=== PATIENT | female | born 1975 | race Caucasian/White ===

== ENCOUNTER 2017-12-20 22:49 | Emergency (ER) | payer OTHER ==
[2017-12-21] LABS: Absolute Lymphocytes (CBC) 2.9 K/uL (0.7-4.9); Absolute Monocytes 0.7 K/uL (0.1-1.3); Absolute Neutrophil 5.4 K/uL (1.8-8.0); Basophils % 0.9 % (0-1.3); Eosinophils % 3.5 % (0-4.4); Lymphocytes % 30.8 % (15.3-44.8); MCH 33.7 pg (27.0-35.0); MCV 95.2 fL (80-100); MPV 7.6 fL (7.6-11.3); Monocytes % 7.3 % (3.3-12.3)
[2017-12-21 00:03] LABS: Protime INR 0.87
[2017-12-21] MEDS ORDERED: NA CHLORIDE 0.9% 1,000 ML ONE (00:09)
[2017-12-21 00:17] LABS: Barbiturates NEGATIVE (NEGATIVE); Benzodiazepines NEGATIVE (NEGATIVE); Cocaine NEGATIVE (NEGATIVE); METHAMPHETAM NEGATIVE (NEGATIVE); Methadone NEGATIVE (NEGATIVE); Opiates NEGATIVE (NEGATIVE); Phencyclidine NEGATIVE (NEGATIVE); THC Cannibis POSITIVE (NEGATIVE)
[2017-12-21 00:20] LABS: ALT/SGPT 23 U/L (12-78); AST/SGOT 19 U/L (15-37); Albumin 3.5 g/dL (3.4-5.0); Alkaline Phosphatase 103 U/L (45-117); BUN Blood Urea Nitrogen 9 mg/dL (7-18); Bicarbonate 25 mmol/L (21-32); Bilirubin Direct < 0.1 mg/dL (0-0.2); Bilirubin Total 0.3 mg/dL (0.2-1.0); Glucose Level 102 mg/dL (74-106); Potassium 3.4 mmol/L (3.5-5.1); Protein, Total 7.3 g/dL (6.4-8.2); Sodium Level 140 mmol/L (136-145)
[2017-12-21 00:55] LABS: Urine Blood 1+ (NEG); Urine Glucose NEGATIVE (NEG); Urine Protein 1+ (NEG); Urine Specific Gravity <1.005 (1.005-1.030); Urine pH 5.5 (5.0-7.0)
[2017-12-21 00:56] LABS: Lithium 1.4 mmol/L (0.6-1.2); Salicylates Level 6.7 mg/dL (2.8-20)
--- NOTE | 2017-12-21 08:39 | EKG ---
Test Date: 2017-12-20 Test Time: 22:51:30 Technical Training Manager: YULIA MEASUREMENT RESULTS: Intervals: Rate: 80 LA: 128 QRSD: 94 QT: 398 QTc: 459 [place]: P: 54 LA: 128 QRS: 64 T: 39 INTERPRETIVE STATEMENTS: Normal sinus rhythm Nonspecific T wave abnormality Abnormal ECG No previous ECG available for comparison Electronically Signed On 12-21-17 08:38:43 CDT by Willie Hill
--- NOTE | 2017-12-21 09:44 | EDPHYS ---
Physician Documentation [facility] Name: Faby Boston Age: 42 yrs Sex: Female : 1975 Arrival Date: 12/20/2017 Time: 22:49 Bed 3 Private MD: ED Physician Samuel Arevalo HPI: 12/21 02:38 This 42 yrs old Female presents to ER via EMS with complaints of Suicidal gs Ideation, INGESTION. 02:38 The patient presents to the emergency department with suicide ideation. The patient gs presents to the emergency department with suicide ideation, and the patient has a plan, to overdose with medications. Onset: The symptoms/episode began/occurred acutely, yesterday. Associated signs and symptoms: Pertinent negatives: abdominal pain, hallucinations, paranoia. Severity of symptoms: At their worst the symptoms were moderate in the emergency department the symptoms are unchanged. The patient has experienced similar episodes in the past, a few times. says took 10 lithium pills. 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 - Social history:: Smoking status: Patient uses tobacco products, unknown amount Patient uses alcohol. - Ebola Screening: : Patient negative for fever greater than or equal to 101.5 degrees Fahrenheit, and additional compatible Ebola Virus Disease symptoms Patient denies exposure to infectious person Patient denies travel to an Ebola-affected area in the 21 days before illness onset No symptoms or risks identified at this time. ROS: 12/21 02:38 All other systems are negative. gs Exam: 02:38 Head/Face: Normocephalic, atraumatic. Eyes: Pupils equal round and reactive to light, gs extra-ocular motions intact. Lids and lashes normal. Conjunctiva and sclera are non-icteric and not injected. Cornea within normal limits. Periorbital areas with no swelling, redness, or edema. ENT: Nares patent. No nasal discharge, no septal abnormalities noted. Tympanic membranes are normal and external auditory canals are clear. Oropharynx with no redness, swelling, or masses, exudates, or evidence of obstruction, uvula midline. Mucous membranes moist. Neck: Trachea midline, no thyromegaly or masses palpated, and no cervical lymphadenopathy. Supple, full range of motion without nuchal rigidity, or vertebral point tenderness. No Meningismus. Chest/axilla: Normal chest wall appearance and motion. Nontender with no deformity. No lesions are appreciated. Cardiovascular: Regular rate and rhythm with a normal S1 and S2. No gallops, murmurs, or rubs. Normal PMI, no JVD. No pulse deficits. Respiratory: Lungs have equal breath sounds bilaterally, clear to auscultation and percussion. No rales, rhonchi or wheezes noted. No increased work of breathing, no retractions or nasal flaring. Abdomen/GI: Soft, non-tender, with normal bowel sounds. No distension or tympany. No guarding or rebound. No evidence of tenderness throughout. Back: No spinal tenderness. No costovertebral tenderness. Full range of motion. Skin: Warm, dry with normal turgor. Normal color with no rashes, no lesions, and no evidence of cellulitis. MS/ Extremity: Pulses equal, no cyanosis. Neurovascular intact. Full, normal range of motion. 02:38 Constitutional: The patient appears alert, awake. 02:38 ECG was reviewed by the Attending Physician. 02:38 Psych: Behavior/mood is depressed, Oriented to person, place, time, Patient having thoughts of suicide. Vital Signs: 12/20 22:52 BP 103 / 66; Pulse 81; Resp 15; Temp 98.7; Pulse Ox 98% ; Weight 61.23 kg; Height 5 ft. cc3 1 in. (154.94 cm); 23:53 BP 95 / 59; Pulse 77; Resp 12 S; Pulse Ox 97% on R/A; bb 12/21 00:00 BP 97 / 57; Pulse 80; Resp 19; Pulse Ox 97% ; bp 00:57 BP 96 / 62; Pulse 73; Resp 15; Pulse Ox 99% ; bp 02:00 BP 97 / 66; Pulse 83; Resp 21; Pulse Ox 97% ; bp 03:00 BP 112 / 78; Pulse 79; Resp 18; Pulse Ox 95% ; bp 03:56 BP 124 / 87; Pulse 74; Resp 15; Pulse Ox 100% ; bp 06:15 BP 106 / 72; Pulse 66; Resp 16 S; Pulse Ox 100% on R/A; bp 07:33 BP 110 / 73; Pulse 71 MON; Resp 14; Pulse Ox 99% ; sv 08:33 BP 118 / 70; Pulse 68; Resp 18; Pulse Ox 97% ; sv 12/20 22:52 Body Mass Index 25.51 (61.23 kg, 154.94 cm) cc3 07:33 Sinus Rhythm sv MDM: 12/20 23:55 Patient medically screened. 12/21 02:38 Differential diagnosis: drug withdrawal. acute psychotic break, depression. Data reviewed: vital signs, nurses notes. Response to treatment: There is no appreciated change of the patient's symptoms at this time, and as a result, I will transfer. 09:42 ED course: Inherited patient from Dr. Arevalo pending transfer, no NAIDA obtained, patient rn now sober and denies suicidal ideation or intent to nurse and myself. Has roommate here with her, she is going home regardless of what we say or do. Is asymptomatic, ambulatory to bathroom. Kismet level a little elevated but an acute on chronic ingestion of even a few pills would result in a high level, is still below 2, and patient asymptomatic, lithium levels have poor correlation to toxicity, especially with regular dosing. Sober and denies suicidal ideation, unable to detain here at this point. Patient eloped. . 12/20 23:02 Order name: Acetaminophen; Complete Time: : [facility] 12/20 23:02 Order name: Basic Metabolic Panel; Complete Time: : [facility] 12/20 23:02 Order name: CBC with Diff; Complete Time: [facility] 12/20 23:02 Order name: ETOH Level; Complete Time: : [facility] 12/20 23:02 Order name: Hepatic Function; Complete Time: : [facility] 12/20 23:02 Order name: PT-INR; Complete Time: : [facility] 12/20 23:02 Order name: Ptt, Activated; Complete Time: : [facility] 12/20 23:02 Order name: Salicylate; Complete Time: : [facility] 12/20 23:02 Order name: Urine Drug Screen; Complete Time: : [facility] 12/20 23:02 Order name: Kismet; Complete Time: [facility] 12/20 23:37 Order name: Urine Dipstick--Ancillary (enter results); Complete Time: 01:46 ia 12/20 23:37 Order name: Urine --Ancillary (enter results); Complete Time: 01:46 ia 12/21 07:09 Order name: Kismet; Complete Time: 08:50 12/21 07:09 Order name: ETOH Level; Complete Time: 08:50 12/20 23:02 Order name: Urine Test (obtain specimen); Complete Time: 23:59 [facility] 12/20 23:02 Order name: EKG; Complete Time: 23:03 [facility] 12/20 23:02 Order name: EKG - Nurse/Tech; Complete Time: 23:59 [facility] 12/20 23:02 Order name: IV Saline Lock; Complete Time: 23:59 [facility] 12/20 23:02 Order name: Labs collected and sent; Complete Time: 23:59 3 12/20 23:02 Order name: Urine Dipstick-Ancillary (obtain specimen); Complete Time: :59 [facility] 12/21 07:23 Order name: Diet Finger Food; Complete Time: 07:23 ss EC:38 Rate is 80 beats/min. Rhythm is regular. NV interval is normal. QRS interval is normal. gs T waves are Flattened. No ST changes noted. Clinical impression: NSR w/ Non-specific ST/T Changes. Interpreted by me. Administered Medications: 00:05 Drug: NS 0.9% 1000 ml Route: IV; Rate: 1 bolus; Site: right forearm; bp 01:24 Follow up: IV Status: Completed infusion; IV Intake: 1000ml bp Disposition: 12/21/17 09:42 Patient left the facility after being seen by provider. - Patient left due to other. Signatures: Dispatcher [employer] Tammi Christianson RN RN sv Nieto, Roman, MD MD rn Starr, Gregory, MD MD gs Peltier, Brian, RN RN bp Cordel, Charlene cc3
--- NOTE | 2017-12-21 09:44 | ER ---
Nurse's Notes [facility] Name: Faby Boston Age: 42 yrs Sex: Female : 1975 Arrival Date: 12/20/2017 Time: 22:49 Bed 3 Private MD: Diagnosis: Presentation: 12/20 22:50 Presenting complaint: EMS states: LITHIUM OVERDOSE, SUICIDAL IDEATION. Transition of cc3 care: patient was not received from another setting of care. Onset of symptoms is unknown. Risk Assessment: Do you want to hurt yourself or someone else? Patient reports desire/thoughts of hurting themselves or someone else. Provider notified. Initial Sepsis Screen: Does the patient meet any 2 criteria? No. Patient's initial sepsis screen is negative. Does the patient have a suspected source of infection? No. Patient's initial sepsis screen is negative. Care prior to arrival: None. 22:50 Method Of Arrival: EMS: [facility] cc3 22:50 Acuity: THANIA 2 cc3 Triage Assessment: 22:52 General: Appears in no apparent distress. comfortable, Behavior is cooperative, cc3 inappropriate for age, restless, Smells of alcohol. Pain: Denies pain. EENT: No deficits noted. Neuro: Level of Consciousness is awake, alert, obeys commands, Oriented to person, place, time, situation, Appropriate for age. Cardiovascular: No deficits noted. Respiratory: Airway is patent Respiratory effort is even, unlabored, Respiratory pattern is regular, symmetrical. GI: No signs and/or symptoms were reported involving the gastrointestinal system. : No signs and/or symptoms were reported regarding the genitourinary system. Derm: No deficits noted. Musculoskeletal: Circulation, motion, and sensation intact. Range of motion: intact in all extremities. 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 - Social history:: Smoking status: Patient uses tobacco products, unknown amount Patient uses alcohol. - Ebola Screening: : Patient negative for fever greater than or equal to 101.5 degrees Fahrenheit, and additional compatible Ebola Virus Disease symptoms Patient denies exposure to infectious person Patient denies travel to an Ebola-affected area in the 21 days before illness onset No symptoms or risks identified at this time. Screenin:59 Abuse screen: Denies threats or abuse. Denies injuries from another. Nutritional cc3 screening: No deficits noted. Tuberculosis screening: No symptoms or risk factors identified. Fall Risk None identified. Assessment: 22:59 General: Appears in no apparent distress. comfortable, Behavior is cooperative. Pain: cc3 Denies pain. Neuro: Level of Consciousness is awake, alert, obeys commands, Oriented to Appropriate for age. Cardiovascular: No deficits noted. Respiratory: Airway is patent Respiratory effort is even, unlabored, Respiratory pattern is regular, symmetrical. GI: No signs and/or symptoms were reported involving the gastrointestinal system. : No signs and/or symptoms were reported regarding the genitourinary system. EENT: No deficits noted. Derm: No deficits noted. Musculoskeletal: Circulation, motion, and sensation intact. Range of motion: intact in all extremities. 23:52 Reassessment: No changes from previously documented assessment. Patient is alert, bb oriented x 3, equal unlabored respirations, skin warm/dry/pink. 12/21 02:00 Reassessment: PT SLEEPING, ALL CURRENT STUDIES COMPLETED. PENDING SOBRIETY FOR MED bp CLEARANCE. 03:56 Reassessment: PT RESTING QUIETLY. VS STABLE, PSYCH EVAL PENDING. bp 07:15 Reassessment: Pt reports that she took about 7-10 pills of [place] yesterday and drank sv "some tall boys" of beer yesterday with the intention of going to sleep for about 2 days. Pt denies attempting suicide in the past and denies it at this time. Informed pt that I am redrawing an alcohol and lithium level. Informed her that the alcohol level will need to be below 100 in order for [facility] to come and evaluate her. General: Appears in no apparent distress. comfortable, Behavior is calm, cooperative, pt laughing and joking with friend that is in the room.. Pain: Denies pain. Neuro: Level of Consciousness is awake, alert, obeys commands, Oriented to person, place, time, situation, Moves all extremities. Full function Speech is normal. Respiratory: Respiratory effort is even, unlabored, Respiratory pattern is regular, symmetrical. Derm: Skin is pink, warm \\T\\ dry. 08:30 Reassessment: Patient appears in no apparent distress at this time. No changes from previously documented assessment. Patient and/or family updated on plan of care and expected duration. Pain level reassessed. Patient is alert, oriented x 3, equal unlabored respirations, skin warm/dry/pink. 09:39 Reassessment: Pt stated that she has to go to work so she can be able to go to her psychiatrist to get direct admitted to a facility in [place]. Pt states that she is not suicidal at this time and she never was. NAIDA was not obtained from presentation to the ER. Informed Dr Joshi. Psych: 12/20 22:55 Subjective: Patient's mood is INAPPROPRIATE Delusions are denied, Hallucinations are cc3 denied Having thoughts of suicide. INTERMITTENT SUICIDAL IDEATION. Objective: Patient is cooperative, Speech is slurred, Affect is inappropriate. Interventions: Removed personal items and placed in bag. Patient placed in hospital gown. Searched person for dangerous items. Belonging list filled out. Suicide Risk Assessment: Sad Person Scale: Sex of patient: Female: Score 0 points. Age of patient: Score 0 point if patient falls outside of specified age parameters. Depression: Score 0 point if signs of depression are not present. Previous Attempt: Score 1 point if patient has previously attempted suicide. Substance Abuse: Score 1 point if patient abuses alcohol or drugs. Rational Thinking: Score 0 point if patient has rational thinking. Social Support: Score 0 if social support is present/available. Organized Plan: Score 0 if patient did not have an organized plan in place. Relationship: Score 1 point if patient is , , , or for a single male Chronic Sickness: Score 0 point if patient does not have a chronic illness, debilitating, or severe disorder. TOTAL POINTS: If total points are 3-4, proposed clinical action is close follow-up/consider hospitalization. Safety Checks: Personal items have been removed. Door is open. No visitors are present at this time. Patient uses UNDISCLOSED AMOUNT OF ETOH, STRONG AROMA. Commitment: BROUGHT BY EMS. Vital Signs: 22:52 BP 103 / 66; Pulse 81; Resp 15; Temp 98.7; Pulse Ox 98% ; Weight 61.23 kg; Height 5 ft. cc3 1 in. (154.94 cm); 23:53 BP 95 / 59; Pulse 77; Resp 12 S; Pulse Ox 97% on R/A; bb 12/21 00:00 BP 97 / 57; Pulse 80; Resp 19; Pulse Ox 97% ; bp 00:57 BP 96 / 62; Pulse 73; Resp 15; Pulse Ox 99% ; bp 02:00 BP 97 / 66; Pulse 83; Resp 21; Pulse Ox 97% ; bp 03:00 BP 112 / 78; Pulse 79; Resp 18; Pulse Ox 95% ; bp 03:56 BP 124 / 87; Pulse 74; Resp 15; Pulse Ox 100% ; bp 06:15 BP 106 / 72; Pulse 66; Resp 16 S; Pulse Ox 100% on R/A; bp 07:33 BP 110 / 73; Pulse 71 MON; Resp 14; Pulse Ox 99% ; sv 08:33 BP 118 / 70; Pulse 68; Resp 18; Pulse Ox 97% ; sv 12/20 22:52 Body Mass Index 25.51 (61.23 kg, 154.94 cm) cc3 07:33 Sinus Rhythm sv ED Course: 12/20 22:49 Patient arrived in ED. cc3 22:51 Triage completed. cc3 22:52 Arm band placed on. cc3 22:59 Patient has correct armband on for positive identification. Placed in gown. Bed in low cc3 position. Call light in reach. Side rails up X2. SITTER AT B/S. 23:00 Safety Checks: Personal items have been removed. The door is open or patient has been cc3 placed in a hallway bed/chair. There are no family/friend visitors at this time Sitter present at this time. 23:00 Inserted saline lock: 20 gauge in right forearm, using aseptic technique. Blood bp collected. 23:16 Safety Checks: Personal items have been removed. The door is open or patient has been kk5 placed in a hallway bed/chair. There are no family/friend visitors at this time Sitter present at this time. 23:29 Safety Checks: Personal items have been removed. The door is open or patient has been kk5 placed in a hallway bed/chair. There are no family/friend visitors at this time Sitter present at this time. 23:40 Samuel Arevalo MD is Attending Physician. 23:48 Safety Checks: Personal items have been removed. The door is open or patient has been kk5 placed in a hallway bed/chair. There are no family/friend visitors at this time Sitter present at this time. 23:58 Safety Checks: Personal items have been removed. The door is open or patient has been kk5 placed in a hallway bed/chair. There are no family/friend visitors at this time Sitter present at this time. 23:58 Jairo Salomon, RUSS is Primary Nurse. bp 12/21 00:15 Safety Checks: Personal items have been removed. The door is open or patient has been kk5 placed in a hallway bed/chair. There are no family/friend visitors at this time Sitter present at this time. 00:32 Safety Checks: Personal items have been removed. The door is open or patient has been kk5 placed in a hallway bed/chair. There are no family/friend visitors at this time Sitter present at this time. 00:48 Safety Checks: Personal items have been removed. The door is open or patient has been kk5 placed in a hallway bed/chair. There are no family/friend visitors at this time Sitter present at this time. 01:01 Safety Checks: Personal items have been removed. The door is open or patient has been kk5 placed in a hallway bed/chair. There are no family/friend visitors at this time Sitter present at this time. 01:15 Safety Checks: Personal items have been removed. The door is open or patient has been kk5 placed in a hallway bed/chair. There are no family/friend visitors at this time Sitter present at this time. 01:31 Safety Checks: Personal items have been removed. The door is open or patient has been kk5 placed in a hallway bed/chair. There are no family/friend visitors at this time Sitter present at this time. 01:45 Safety Checks: Personal items have been removed. The door is open or patient has been kk5 placed in a hallway bed/chair. There are no family/friend visitors at this time Sitter present at this time. 02:00 Safety Checks: Personal items have been removed. The door is open or patient has been kk5 placed in a hallway bed/chair. There are no family/friend visitors at this time Sitter present at this time. 02:16 Safety Checks: Personal items have been removed. The door is open or patient has been kk5 placed in a hallway bed/chair. There are no family/friend visitors at this time Sitter present at this time. 02:30 Safety Checks: Personal items have been removed. The door is open or patient has been kk5 placed in a hallway bed/chair. There are no family/friend visitors at this time Sitter present at this time. 02:46 Safety Checks: Personal items have been removed. The door is open or patient has been kk5 placed in a hallway bed/chair. There are no family/friend visitors at this time Sitter present at this time. 03:00 Safety Checks: Personal items have been removed. The door is open or patient has been kk5 placed in a hallway bed/chair. There are no family/friend visitors at this time Sitter present at this time. 03:17 Safety Checks: Personal items have been removed. The door is open or patient has been kk5 placed in a hallway bed/chair. There are no family/friend visitors at this time Sitter present at this time. 03:33 Safety Checks: Personal items have been removed. The door is open or patient has been kk5 placed in a hallway bed/chair. There are no family/friend visitors at this time Sitter present at this time. 03:50 Safety Checks: Personal items have been removed. The door is open or patient has been kk5 placed in a hallway bed/chair. There are no family/friend visitors at this time Sitter present at this time. 04:10 Safety Checks: Personal items have been removed. The door is open or patient has been kk5 placed in a hallway bed/chair. There are no family/friend visitors at this time Sitter present at this time. 04:31 Safety Checks: Personal items have been removed. The door is open or patient has been kk5 placed in a hallway bed/chair. There are no family/friend visitors at this time Sitter present at this time. 04:45 Safety Checks: Personal items have been removed. The door is open or patient has been kk5 placed in a hallway bed/chair. There are no family/friend visitors at this time Sitter present at this time. 05:01 Safety Checks: Personal items have been removed. The door is open or patient has been kk5 placed in a hallway bed/chair. There are no family/friend visitors at this time Sitter present at this time. 05:15 Safety Checks: Personal items have been removed. The door is open or patient has been kk5 placed in a hallway bed/chair. There are no family/friend visitors at this time Sitter present at this time. 05:30 Safety Checks: Personal items have been removed. The door is open or patient has been kk5 placed in a hallway bed/chair. There are no family/friend visitors at this time Sitter present at this time. 05:45 Safety Checks: Personal items have been removed. The door is open or patient has been kk5 placed in a hallway bed/chair. There are no family/friend visitors at this time Sitter present at this time. 05:58 Safety Checks: Personal items have been removed. The door is open or patient has been kk5 placed in a hallway bed/chair. There are no family/friend visitors at this time Sitter present at this time. 06:15 Safety Checks: Personal items have been removed. The door is open or patient has been kk5 placed in a hallway bed/chair. A family member and/or friend is present and encouraged to stay. Sitter present at this time. 06:32 Safety Checks: Personal items have been removed. The door is open or patient has been kk5 placed in a hallway bed/chair. A family member and/or friend is present and encouraged to stay. Sitter present at this time. 06:47 Safety Checks: Personal items have been removed. The door is open or patient has been kk5 placed in a hallway bed/chair. A family member and/or friend is present and encouraged to stay. Sitter present at this time. 07:01 Safety Checks: Personal items have been removed. The door is open or patient has been kk5 placed in a hallway bed/chair. A family member and/or friend is present and encouraged to stay. Sitter present at this time. 07:03 Primary Nurse role handed off by Jairo Salomon, RUSS sv 07:03 Tammi Juárez, RUSS is Primary Nurse. sv 07:06 Safety checks: Items removed: yes. Door open/sign placed on door: yes. Family/friend em1 present: yes. Family/friends encouraged to stay with patient. Sitter present: Yes. 07:15 Safety checks: Items removed: yes. Door open/sign placed on door: yes. Family/friend em1 present: yes. Family/friends encouraged to stay with patient. Sitter present: Yes. 07:32 Safety checks: Items removed: yes. Door open/sign placed on door: yes. Family/friend em1 present: yes. Family/friends encouraged to stay with patient. Sitter present: Yes. 07:46 Safety checks: Items removed: yes. Door open/sign placed on door: yes. Family/friend em1 present: yes. Family/friends encouraged to stay with patient. Sitter present: Yes. 08:05 Safety checks: Items removed: yes. Door open/sign placed on door: yes. Family/friend em1 present: yes. Family/friends encouraged to stay with patient. Sitter present: Yes. 08:16 Safety checks: Items removed: yes. Door open/sign placed on door: yes. Family/friend em1 present: yes. Family/friends encouraged to stay with patient. Sitter present: Yes. 08:30 Safety Checks: Personal items have been removed. The door is open or patient has been sv placed in a hallway bed/chair. There are no family/friend visitors at this time Sitter present at this time. 08:45 Safety Checks: Personal items have been removed. The door is open or patient has been sv placed in a hallway bed/chair. A family member and/or friend is present and encouraged to stay. Sitter present at this time. 08:55 called the [facility] and spoke with Katrina. She will page out a screener to eb come and evaluate the patient for potential transfer. 09:00 Safety Checks: Personal items have been removed. The door is open or patient has been sv placed in a hallway bed/chair. A family member and/or friend is present and encouraged to stay. There are no family/friend visitors at this time Sitter present at this time. 09:15 Safety Checks: Personal items have been removed. The door is open or patient has been sv placed in a hallway bed/chair. A family member and/or friend is present and encouraged to stay. Sitter present at this time. 09:30 Safety Checks: Personal items have been removed. The door is open or patient has been sv placed in a hallway bed/chair. A family member and/or friend is present and encouraged to stay. Sitter present at this time. 09:41 No provider procedures requiring assistance completed. IV discontinued, intact, sv bleeding controlled, No redness/swelling at site. Pressure dressing applied. 09:45 Safety Checks: Personal items have been removed. The door is open or patient has been sv placed in a hallway bed/chair. A family member and/or friend is present and encouraged to stay. Sitter present at this time. Administered Medications: 00:05 Drug: NS 0.9% 1000 ml Route: IV; Rate: 1 bolus; Site: right forearm; bp 01:24 Follow up: IV Status: Completed infusion; IV Intake: 1000ml bp Intake: 01:24 IV: 1000ml; Total: 1000ml. bp Outcome: 09:42 Eloped from patient exam room, after seeing physician Time discovered patient gone: sv December 21, 2017 at 09:42 09:42 Condition: stable 09:42 Patient left the ED. sv Signatures: Tammi Juárez RN RN sv Ballard, Brenda, RN Vinnie Gonzalez em1 Samuel Arevalo MD MD gs Peltier, Brian, RN RN bp Botello, Elizabeth eb Kouba, Kimberly kk5 Hiwot Ruiz cc3 Corrections: (The following items were deleted from the chart) 09:39 07:15 Reassessment: Pt reports that she took about 7-10 pills of [place] yesterday and sv drank "some tall boys" of beer yesterday with the intention of going to sleep for about 2 days. Pt denies attempting suicide in the past. Informed pt that I am redrawing an alcohol and lithium level. Informed her that the alcohol level will need to be below 100 in order for [facility] to come and evaluate her. sv
== END 2017-12-21 09:42 | disposition left against medical advice (07) ==
LOC: ER 22:49
DX: R45.851 Suicidal ideations (principal); F32.9 Major depressive disorder, single episode, unspecified; E03.9 Hypothyroidism, unspecified; Z72.0 Tobacco use
CPT/HCPCS: 36415; 80048; 80076; 80178 ×2; 80307 ×8; 80320 ×2; 80329 ×2; 81003; 81025; 85025; 85610; 85730; 93005; 96360; 99285; J7030